=== PATIENT | male | born 1945 | race Caucasian/White ===

== ENCOUNTER 2017-03-23 12:23 | Emergency (ER) | payer MEDICARE, OTHER ==
[~2017-03-23] VITALS: Ht 175.3 cm; Wt 99.5 kg
[~2017-03-23 12:23] MED LIST: ASPI325T PO; ATAC8TAB PO; CARV3.125 PO; CLOP75 PO; PARO10TA PO; PRIL20TA2 PO; ZITH250T PO; [UNRECOGNIZED DRUG - CODE] PO
[2017-03-23 12:30] VITALS: BP 111/58; PULSE 73; RESP 18; TEMP 98.2; O2SAT 96
[2017-03-23] MEDS ORDERED: IBUP-1129 (13:01)
[2017-03-23] MEDS ORDERED: PAXI10TA8 PO (13:01)
[2017-03-23] MEDS ORDERED: ATAC8TAB PO (13:01)
[2017-03-23] MEDS ORDERED: MOBI7.5T PO (13:01)
[2017-03-23] MEDS ORDERED: VYTO10TA8 PO (13:01)
[2017-03-23] MEDS ORDERED: CARV6.25 PO (13:01)
[2017-03-23] MEDS ORDERED: ASPI-516 CHEW (13:01)
[2017-03-23] MEDS ORDERED: PLAV75TA29 PO (13:01)
--- NOTE | 2017-03-23 13:57 | PD ---
HPI Chief Complaint: Cold / Flu Symptoms Time Seen by Provider: 13:18 Travel History International Travel<30 days: No Contact w/Intl Traveler<30days: No Traveled to known affect area: No History of Present Illness HPI 72-year-old male presents to the emergency room for evaluation of cough and cold symptoms for the past week. He has been taking [id number] [place] cold and flu without significant relief in symptoms. States he has felt febrile 3 times within the past week but he did not actually take his temperature. He has mild, nonproductive cough, sore throat, and congestion. His is sick with similar symptoms. He has history of depression, hypercholesterolemia, and heart disease. PFSH Past Medical History Hx Anticoagulant Therapy: Yes (Plavix) Arthritis: Yes Asthma: No Autoimmune Disease: No Blood Disorders: No Anxiety: Yes Depression: Yes Heart Rhythm Problems: No Cancer: Yes (PROSTATE) Cardiovascular Problems: Yes (CA, D-Fib) High Cholesterol: Yes Chemotherapy: No Chest Pain: Yes Congestive Heart Failure: No COPD: No Diabetes: No Diminished Hearing: No Endocrine: No Gastrointestinal Disorders: Yes GERD: Yes Glaucoma: No Genitourinary: Yes Hepatitis: No Hiatal Hernia: Yes Heparin Induced Thrombocytopen: No Hypertension: No Immune Disorder: No Implanted Vascular Access Dvce: No Kidney Stones: Yes Musculoskeletal: Yes Neurologic: No Psychiatric: Yes Reproductive: No Respiratory: Yes (Comprimised Lungs) Myocardial Infarction: Yes Radiation Therapy: No Renal Failure: No Sickle Cell Disease: No Sleep Apnea: No Thyroid Disease: No Ulcer: No ?: Not Past Surgical History Abdominal Surgery: Yes (CHOLECYSTECTOMY) AICD: No Appendectomy: No Arteriovenous Shunt: No Cardiac Surgery: No Cholecystectomy: Yes Coronary Stent: Yes (3 STENTS ) Ear Surgery: No Endocrine Surgery: No Eye Surgery: No Genitourinary Surgery: Yes (KIDNEY STONES, PROSTATECTOMY) Gynecologic Surgery: No Insulin Pump: No Joint Replacement: No Oral Surgery: No Pacemaker: No Prostatectomy: Yes Thoracic Surgery: No Other Surgery: Yes Social History Alcohol Use: Yes (RARE) Tobacco Use: No Substance Use: No Allergies-Medications (Allergen,Severity, Reaction): Coded Allergies: benazepril (Unverified Allergy, Severe, Hives, 09/22/16) captopril (Unverified Allergy, Severe, Hives, 09/22/16) enalaprilat (Unverified Allergy, Severe, Hives, 09/22/16) fosinopril (Unverified Allergy, Severe, Hives, 09/22/16) lisinopril (Unverified Allergy, Severe, Hives, 09/22/16) quinapril (Unverified Allergy, Severe, Hives, 09/22/16) atorvastatin (Unverified Adverse Reaction, Intermediate, myalgia, 09/22/16) Reported Meds & Prescriptions Reported Meds & Active Scripts Active Reported Vytorin (Ezetimibe-Simvastatin) 10-20 Mg Tab 1 Tab PO HS Atacand (Candesartan Cilexetil) 8 Mg Tab 8 Mg PO DAILY Coreg (Carvedilol) 6.25 Mg Tab 6.25 Mg PO BID Motrin Ib (Ibuprofen) 200 Mg Tablet Plavix (Clopidogrel Bisulfate) 75 Mg Tab 75 Mg PO DAILY Paxil (Paroxetine HCl) 10 Mg Tab 10 Mg PO DAILY Mobic (Meloxicam) 7.5 Mg Tab 7.5 Mg PO DAILY Aspirin 81 Mg Chew 81 Mg CHEW DAILY Review of Systems Except as stated in HPI: all other systems reviewed are Neg Physical Exam Narrative GENERAL: Well-nourished, well-developed male in no acute distress. Afebrile. Ambulatory. SKIN: Focused skin assessment warm/dry. HEAD: Normocephalic. EYES: No scleral icterus. No injection or drainage. NECK: Supple, trachea midline. No JVD or lymphadenopathy. ENT: Mucosa pink and moist. No erythema or exudates. No uvular edema. No uvular , palatal, or tonsillar deviation. Airway patent. Nasal turbinates appear normal without nasal blood, purulent drainage or septal hematoma. EARS: Bilateral pinnae and external canals appear within normal limits. Bilateral tympanic membranes without erythema, dullness or perforation. CARDIOVASCULAR: Regular rate and rhythm without murmurs, gallops, or rubs. RESPIRATORY: Breath sounds equal bilaterally. No accessory muscle use. No crackles, rales, wheezes, or rhonchi. Data Data Last Documented VS Vital Signs Date Time Temp Pulse Resp B/P (MAP) Pulse Ox O2 Delivery O2 Flow Rate FiO2 03/23/17 12:30 98.2 73 18 111/58 (75) 96 Orders Orders Group A Rapid Strep Screen (03/23/17 13:34) Influenzae A/B Antigen (03/23/17 13:34) Strep Culture (Group A) (03/23/17 13:48) Ed Discharge Order (03/23/17 14:28) [facility] Medical Decision Making Medical Screen Exam Complete: Yes Emergency Medical Condition: Yes Medical Record Reviewed: Yes Differential Diagnosis Influenza, pneumonia, URI Narrative Course 72-year-old male presents to the emergency room for evaluation of cold symptoms for the past week. His is sick with similar symptoms. Patient is afebrile and well-appearing in the emergency room. Vital signs stable. Resting comfortably. Lung sounds clear and equal bilaterally. No significant erythema of the pharynx. Rapid insulins and strep are negative. This is viral URI. Patient told to continue [id number] medications and follow-up with her primary care physician or return for worsening symptoms. He understands and agrees to plan. Diagnosis Primary Impression: Viral URI Referrals: Primary Care Physician Additional Instructions: Rest and drink plenty of fluids. Continue [id number] cough and cold medication as directed. Follow-up with a primary care physician. Return to the emergency room for worsening symptoms. Med/Other Pt SpecificInfo: Prescription(s) given Disposition: 01 DISCHARGE HOME Condition: Stable Hermelinda Brownlee Mar 23, 2017 13:57
== END 2017-03-23 14:59 | disposition home or self-care (01) ==
LOC: PHEFT 12:23
DX: J06.9 Acute upper respiratory infection, unspecified (principal); F32.9 Major depressive disorder, single episode, unspecified; E78.00 Pure hypercholesterolemia, unspecified; K21.9 Gastro-esophageal reflux disease without esophagitis; I25.2 Old myocardial infarction; F41.9 Anxiety disorder, unspecified; Z95.5 Presence of coronary angioplasty implant and graft; Z85.46 Personal history of malignant neoplasm of prostate
CPT/HCPCS: 87081; 87804; 87880; 99283

== ENCOUNTER → 2017-04-19 | Outpatient (CLI) | payer MEDICARE, OTHER ==
[~2017-04-19] MED LIST changes: +ASPI-516 CHEW; -ASPI325T PO; -CARV3.125 PO; +CARV6.25 PO; -CLOP75 PO; +IBUP-1129; +MOBI7.5T PO; -PARO10TA PO; +PAXI10TA8 PO; +PLAV75TA29 PO; -PRIL20TA2 PO; +VYTO10TA8 PO; -ZITH250T PO; -[UNRECOGNIZED DRUG - CODE] PO
[2017-04-19 09:16] LABS: HEMATOCRIT 40.9 % (39.0-51.0); HEMOGLOBIN 14.3 GM/DL (13.0-17.0); MEAN CORPUSCULAR HEMOGLOBIN 31.1 PG (27.0-34.0); MEAN PLATELET VOLUME 9.6 FL (7.0-11.0); PLATELET COUNT 201 TH/MM3 (150-450); RED CELL DISTRIBUTION WIDTH 13.3 % (11.6-17.2); WHITE BLOOD COUNT 9.8 TH/MM3 (4.0-11.0)
[2017-04-19 09:32] LABS: ALBUMIN 3.6 GM/DL (3.4-5.0); AST (GOT) 28 U/L (15-37); BICARBONATE 29.4 MEQ/L (21.0-32.0); BLOOD UREA NITROGEN 31 MG/DL (7-18); CALCIUM 9.5 MG/DL (8.5-10.1); CHLORIDE 105 MEQ/L (98-107); CHOLESTEROL 106 MG/DL (120-200); CREATININE 1.46 MG/DL (0.60-1.30); GLOMERULAR FILTRATION RATE 47 ML/MIN (>89); GLUCOSE,FASTING 109 MG/DL (74-99); SODIUM (NA) 141 MEQ/L (136-145); TRIGLYCERIDES 176 MG/DL (42-150)
[2017-04-19 09:35] LABS: ALKALINE PHOSPHATASE 100 U/L (45-117); ALT (GPT) 33 U/L (12-78); CHOLESTEROL/ HDL RATIO 2.54 RATIO; HDL CHOLESTEROL 41.7 MG/DL (40.0-60.0); LDL CHOLESTEROL 29 MG/DL (0-99); TOTAL BILIRUBIN ADULT 0.4 MG/DL (0.2-1.0); TOTAL PROTEIN 6.9 GM/DL (6.4-8.2)
== END ==
LOC: CLAB 08:40
PROVIDERS: ATTEND Internal Medicine Interventional Cardiology
DX: I25.10 Atherosclerotic heart disease of native coronary artery without angina pectoris (principal); I25.9 Chronic ischemic heart disease, unspecified; E78.2 Mixed hyperlipidemia; I50.22 Chronic systolic (congestive) heart failure; Z79.899 Other long term (current) drug therapy
CPT/HCPCS: 36415; 80053; 80061; 85027